=== PATIENT | female | born 1975 | race Caucasian/White ===

== ENCOUNTER 2017-08-22 14:23 | Emergency (ER) | payer BC ==
--- NOTE | 2017-08-22 14:39 | EDM.PDOC ---
ED HPI GENERAL MEDICAL PROBLEM - General Chief Complaint: Respiratory Problem Stated Complaint: SICK Time Seen by Provider: 08/22/17 14:39 Source of Information: Reports: Patient - History of Present Illness INITIAL COMMENTS - FREE TEXT/NARRATIVE: HISTORY AND PHYSICAL: History of present illness: [Patient with persistent cough has been treated through the walk-in clinic with 2 rounds of amoxicillin she has been on prednisone tapering dose since Wednesday she complains of ear pain she did have bilateral otitis media however now appears only effusions remain No fever nausea vomiting chills sweats no chest pain shortness breath headache dizziness palpitation about a urine symptoms ] History of tubal ligation Review of systems: As per history of present illness and below otherwise all systems reviewed and negative. Past medical history: As per history of present illness and as reviewed below otherwise noncontributory. Surgical history: As per history of present illness and as reviewed below otherwise noncontributory. Social history: No reported history of drug or alcohol abuse. Family history: As per history of present illness and as reviewed below otherwise noncontributory. Physical exam: HEENT: Atraumatic, normocephalic, pupils reactive, negative for conjunctival pallor or scleral icterus, mucous membranes moist, throat clear, neck supple, nontender, trachea midline. Mild erythema oropharynx moderate effusion bilateral no loss landmarks no mastoid tenderness no meningeal sign Lungs: Clear to auscultation, breath sounds equal bilaterally, chest nontender. Heart: S1S2, regular, negative for clicks, rubs, or JVD. Abdomen: Soft, nondistended, nontender. Negative for masses or hepatosplenomegaly. Negative for costovertebral tenderness. Pelvis: Stable nontender. Genitourinary: Deferred. Rectal: Deferred. Extremities: Atraumatic, negative for cords or calf pain. Neurovascular unremarkable. Neuro: Awake, alert, oriented. Cranial nerves II through XII unremarkable. Cerebellum unremarkable. Motor and sensory unremarkable throughout. Exam nonfocal. Diagnostics: [Chest 2 views Influenza A ] Therapeutics: []Z-Bertin to cover atypicals Likely viral origin Patient has HFA available she is currently on a prednisone taper Phenergan with codeine Recommend rest fluids nutrition Impression: []Persistent cough Bilateral ear effusion Definitive disposition and diagnosis as appropriate pending reevaluation and review of above. - Related Data Allergies Allergy/AdvReac Type Severity Reaction Status Date / Time No Known Allergies Allergy Verified 08/22/17 14:58 Home Meds: Home Meds Albuterol [Ventolin HFA] gm INH Q4H 08/22/17 [History] Amoxicillin 875 mg PO BID 08/22/17 [History] Prednisone [IJD: Prednisone] mg PO 08/22/17 [History] ED ROS GENERAL - Review of Systems Review Of Systems: ROS reveals no pertinent complaints other than HPI. ED EXAM, GENERAL - Physical Exam Exam: See Below Course - Vital Signs Last Recorded V/S: Last Vital Signs Temp 99.0 F 08/22/17 14:45 Pulse 78 08/22/17 14:45 Resp 24 H 08/22/17 14:45 BP 123/73 08/22/17 14:45 Pulse Ox 97 08/22/17 14:45 - Orders/Labs/Meds Orders: Active Orders 24 hr Category Date Time Status RT Aerosol Therapy [RC] ASDIRECTED Care 08/22/17 14:59 Active Chest 2V [CR] Stat Exams 08/22/17 14:55 Taken Meds: Medications Discontinued Medications Generic Name Dose Route Start Last Admin Trade Name Freq PRN Reason Stop Dose Admin Albuterol/Ipratropium 3 ml 08/22/17 14:59 08/22/17 15:27 Duoneb 3.0-0.5 Mg/3 Ml NEB 08/22/17 15:00 3 ml ONETIME ONE Administration Departure - Departure Time of Disposition: 15:56 Disposition: Home, Self-Care 01 Condition: Good Clinical Impression: Bronchitis, Acute effusion of both middle ears - Discharge Information Referrals: PCP,None [Primary Care Provider] - Forms: ED Department Discharge Additional Instructions: Medication as prescribed Return if symptoms persist or worsen Follow-up with primary care as needed The following information is given to patients seen in the emergency department who are being discharged to home. This information is to outline your options for follow-up care. We provide all patients seen in our emergency department with a follow-up referral. The need for follow-up, as well as the timing and circumstances, are variable depending upon the specifics of your emergency department visit. If you don't have a primary care physician on staff, we will provide you with a referral. We always advise you to contact your personal physician following an emergency department visit to inform them of the circumstance of the visit and for follow-up with them and/or the need for any referrals to a consulting specialist. The emergency department will also refer you to a specialist when appropriate. This referral assures that you have the opportunity for follow-up care with a specialist. All of these measure are taken in an effort to provide you with optimal care, which includes your follow-up. Under all circumstances we always encourage you to contact your private physician who remains a resource for coordinating your care. When calling for follow-up care, please make the office aware that this follow-up is from your recent emergency room visit. If for any reason you are refused follow-up, please contact the [facility] emergency department at and asked to speak to the emergency department charge nurse. - My Orders Last 24 Hours: My Active Orders 08/22/17 14:55 Chest 2V [CR] Stat 08/22/17 14:59 RT Aerosol Therapy [RC] ASDIRECTED - Assessment/Plan Last 24 Hours: My Active Orders 08/22/17 14:55 Chest 2V [CR] Stat 08/22/17 14:59 RT Aerosol Therapy [RC] ASDIRECTED
[2017-08-22] MEDS ORDERED: Albuterol/Ipratropium 3.0-0.5 MG/3 ML Neb Soln NEB ONE (14:59)
--- NOTE | 2017-08-23 16:08 | CR ---
EXAM DATE: 08/22/17 PATIENT'S AGE: 42 Patient: PRIMITIVO ANDRES Facility: [place], [place] Site . Site : 1975 Study: XRay Chest [id number]/19/2017 3:46:54 PM Ordering Physician: Vivek Warren Final Report: INDICATION: Pain shortness of breath TECHNIQUE: Two view chest. FINDINGS: The lungs are clear. The heart, mediastinum and pulmonary vessels are of normal size. There is no evidence of pleural disease. IMPRESSION: Negative chest. Dictated by Deena Ramsay MD @ Aug 22 2017 4:08PM (Electronic Signature) Report Signed by Proxy. DOMENICA
== END 2017-08-22 16:06 | disposition home or self-care (01) ==
LOC: MW.ED 14:23
DX: J40 Bronchitis, not specified as acute or chronic (principal); H65.193 Other acute nonsuppurative otitis media, bilateral
CPT/HCPCS: 71020; 71020-26; 87804; 94640; 99281; 99284-25

== ENCOUNTER 2017-12-03 08:19 | Emergency (ER) | payer OTHER, BC ==
--- NOTE | 2017-12-03 08:53 | EDM.PDOC ---
ED HPI GENERAL MEDICAL PROBLEM - General Chief Complaint: Back Pain or Injury Stated Complaint: BACK AND HIP PAIN Time Seen by Provider: 12/03/17 08:35 - History of Present Illness INITIAL COMMENTS - FREE TEXT/NARRATIVE: HISTORY AND PHYSICAL: History of present illness: The patient is a 42-year-old female who presents the two-week history of lower back pain bilaterally that started after an event at work. The patient slept off of a tire she was standing on and reaching over a bed of the truck and she did not fall to the ground or hit her back but was lifting heavy objects and had abnormal twisting and motion on the way down to her feet. Since that time she has had this discomfort which is better when she stretches and worse with different movements. The pain does not radiate to her legs and she has no bowel or bladder disturbances. She has been using [id number] Aleve and has talked her employer about getting in with occupational health but because they could not get her an appointment she is here for care. She has no systemic complaints no abdominal complaints no flank pain. The patient states she has been to the chiropractor several times and has had x-rays performed and was told that her disc space at L5 was somewhat narrowed but the chiropractor has been working more with stretching and adjusting and did not prescribe any medications. Review of systems: As per history of present illness and below otherwise all systems reviewed and negative. Past medical history: As per history of present illness and as reviewed below otherwise noncontributory. Surgical history: As per history of present illness and as reviewed below otherwise noncontributory. Social history: No reported history of drug or alcohol abuse. Family history: As per history of present illness and as reviewed below otherwise noncontributory. Physical exam: Gen.: Well-developed well-nourished female who is nontoxic and moves in the ED without assistance does not look like she is in no overt distress. HEENT: Atraumatic, normocephalic, negative for conjunctival pallor or scleral icterus, mucous membranes moist, throat clear, neck supple, nontender, trachea midline. Lungs: Clear to auscultation, breath sounds equal bilaterally, chest nontender. Heart: S1S2, regular rate and rhythm no overt murmurs Abdomen: Soft, nondistended, nontender. NABS Negative for costovertebral tenderness. Pelvis: Stable nontender. Genitourinary: Deferred. Rectal: Deferred. Extremities: Atraumatic, negative for cords or calf pain. Neurovascular unremarkable. Neuro: Awake, alert, oriented. Cranial nerves II through XII unremarkable. Cerebellum unremarkable. Motor and sensory unremarkable throughout. Exam nonfocal. Patellar reflexes are +2 bilaterally dorsi and plantar flexion is intact 5/5 inclusive of the great toe and inversion and eat version of the feet is intact. Gait is normal. Back: There are no midline step-offs tenderness defects of the thoracic or lumbar spine there is some discrete SI joint tenderness bilaterally but no soft tissue injury swelling seen. There is diffuse paraspinal lumbar muscular pain on palpation Diagnostics: [] Therapeutics: She was offered Toradol and refuses that shot I discussed with the patient at length that she would need to follow-up in our clinic or with her occupational health person and potentially get involved with physical therapy. At this point I do not think this is a disc injury nor does it require an emergent MRI but she was advised that if the pain persists that that might need to be investigated. Impression: Lumbar back pain strain subacute Definitive disposition and diagnosis as appropriate pending reevaluation and review of above. Back and Hips Pain Score (Numeric/FACES): 4 - Related Data Allergies Allergy/AdvReac Type Severity Reaction Status Date / Time No Known Allergies Allergy Verified 12/03/17 08:29 Home Meds: Home Meds Multivitamin [One Daily] 1 each PO DAILY 12/03/17 [History] Past Medical History - Past Health History Medical/Surgical History: Denies Medical/Surgical History HEENT History: Reports: None Cardiovascular History: Reports: None Respiratory History: Reports: None Gastrointestinal History: Reports: None Genitourinary History: Reports: None Musculoskeletal History: Reports: None Neurological History: Reports: None Endocrine/Metabolic History: Reports: None Hematologic History: Reports: None - Infectious Disease History Infectious Disease History: Reports: Chicken Pox - Past Surgical History Head Surgeries/Procedures: Reports: None HEENT Surgical History: Reports: None Cardiovascular Surgical History: Reports: None Respiratory Surgical History: Reports: None Female Surgical History: Reports: Tubal Ligation Other Female Surgeries/Procedures: reports tubal ligation Social & Family History - Family History Family Medical History: Noncontributory - Tobacco Use Smoking Status *Q: Never Smoker Second Hand Smoke Exposure: No - Caffeine Use Caffeine Use: Reports: Coffee - Alcohol Use Days Per Week of Alcohol Use: 7 Number of Drinks Per Day: 2 Total Drinks Per Week: 14 - Recreational Drug Use Recreational Drug Use: No ED ROS GENERAL - Review of Systems Review Of Systems: ROS reveals no pertinent complaints other than HPI. ED EXAM, GENERAL - Physical Exam Exam: See Below (See dictation) Course - Vital Signs Last Recorded V/S: Last Vital Signs Temp 37.0 C 12/03/17 08:30 Pulse 76 12/03/17 08:30 Resp 16 12/03/17 08:30 BP 109/76 12/03/17 08:30 Pulse Ox 99 12/03/17 08:30 Departure - Departure Time of Disposition: 08:52 Disposition: Home, Self-Care 01 Condition: Good Clinical Impression: Lumbar back sprain Qualifiers: Encounter type: initial encounter Qualified Code(s): S33.5XXA - Sprain of ligaments of lumbar spine, initial encounter - Discharge Information Referrals: PCP,None [Primary Care Provider] - Additional Instructions: The following information is given to patients seen in the emergency department who are being discharged to home. This information is to outline your options for follow-up care. We provide all patients seen in our emergency department with a follow-up referral. The need for follow-up, as well as the timing and circumstances, are variable depending upon the specifics of your emergency department visit. If you don't have a primary care physician on staff, we will provide you with a referral. We always advise you to contact your personal physician following an emergency department visit to inform them of the circumstance of the visit and for follow-up with them and/or the need for any referrals to a consulting specialist. The emergency department will also refer you to a specialist when appropriate. This referral assures that you have the opportunity for followup care with a specialist. All of these measure are taken in an effort to provide you with optimal care, which includes your followup. Under all circumstances we always encourage you to contact your private physician who remains a resource for coordinating your care. When calling for followup care, please make the office aware that this follow-up is from your recent emergency room visit. If for any reason you are refused follow-up, please contact the [facility] emergency department at and ask to speak to the emergency department charge nurse. [facility] Primary care- [place] [address] Please use medications as needed and prescribed and only take the muscle relaxer when you're at home. Please do stretching as we discussed and use ice after any activities and work for 1 hour and then switch to heat and do your stretching. Please call and follow-up with one of our clinic providers for reevaluation further care and referrals to physical therapy or for MRI as indicated. Return to ER as needed and as discussed
== END 2017-12-03 09:07 | disposition home or self-care (01) ==
LOC: MW.ED 08:19
DX: S33.5XXA Sprain of ligaments of lumbar spine, initial encounter (principal); X50.1XXA Overexertion from prolonged static or awkward postures, initial encounter; Y92.89 Other specified places as the place of occurrence of the external cause; Y99.0 Civilian activity done for income or pay
CPT/HCPCS: 99282

== ENCOUNTER 2018-02-07 06:45 | Emergency (ER) | payer BC, OTHER ==
[2018-02-07] MEDS ORDERED: Sodium Chloride 0.9% 1,000 ML IV ONE (06:51)
--- NOTE | 2018-02-07 06:56 | EDM.PDOC ---
ED HPI GENERAL MEDICAL PROBLEM - General Chief Complaint: Abdominal Pain Stated Complaint: STOMACH PAINS Time Seen by Provider: 02/07/18 06:55 Source of Information: Reports: Patient - History of Present Illness INITIAL COMMENTS - FREE TEXT/NARRATIVE: HISTORY AND PHYSICAL: History of present illness: [Patient presents with right upper quadrant pain and bloating with food association no nausea vomiting chills sweats pain is been present since no current fever No chest pain shortness breath headache dizziness or palpitation some loose stools today no urine symptoms ] Review of systems: As per history of present illness and below otherwise all systems reviewed and negative. Past medical history: As per history of present illness and as reviewed below otherwise noncontributory. Surgical history: As per history of present illness and as reviewed below otherwise noncontributory. Social history: No reported history of drug or alcohol abuse. Family history: As per history of present illness and as reviewed below otherwise noncontributory. Physical exam: HEENT: Atraumatic, normocephalic, pupils reactive, negative for conjunctival pallor or scleral icterus, mucous membranes moist, throat clear, neck supple, nontender, trachea midline. Lungs: Clear to auscultation, breath sounds equal bilaterally, chest nontender. Heart: S1S2, regular, negative for clicks, rubs, or JVD. Abdomen: Soft, nondistendedmild tenderness on deep palpation right upper quadrant . Negative for masses or hepatosplenomegaly. Negative for costovertebral tenderness. Pelvis: Stable nontender. Genitourinary: Deferred. Rectal: Deferred. Extremities: Atraumatic, negative for cords or calf pain. Neurovascular unremarkable. Neuro: Awake, alert, oriented. Cranial nerves II through XII unremarkable. Cerebellum unremarkable. Motor and sensory unremarkable throughout. Exam nonfocal. Diagnostics: [CBC CMP UA hCG lipase ]CT abdomen Limited Therapeutics: [Am liter saline bolus ] Toradol 30 mg IV Zofran 8 mg IV ER referral to general surgery for consideration of HIDA scan [place] diet [place] Zofran Impression: [Abdominal pain] Definitive disposition and diagnosis as appropriate pending reevaluation and review of above. Epigastric Pain Score (Numeric/FACES): 3 - Related Data Allergies Allergy/AdvReac Type Severity Reaction Status Date / Time No Known Allergies Allergy Verified 02/07/18 06:55 Home Meds: Home Meds Multivitamin [One Daily] 1 each PO DAILY 12/03/17 [History] Past Medical History - Past Health History Medical/Surgical History: Denies Medical/Surgical History HEENT History: Reports: None Cardiovascular History: Reports: None Respiratory History: Reports: None Gastrointestinal History: Reports: None Genitourinary History: Reports: None Musculoskeletal History: Reports: None Neurological History: Reports: None Endocrine/Metabolic History: Reports: None Hematologic History: Reports: None - Infectious Disease History Infectious Disease History: Reports: Chicken Pox - Past Surgical History Head Surgeries/Procedures: Reports: None HEENT Surgical History: Reports: None Cardiovascular Surgical History: Reports: None Respiratory Surgical History: Reports: None Female Surgical History: Reports: Tubal Ligation Other Female Surgeries/Procedures: reports tubal ligation Social & Family History - Family History Family Medical History: Noncontributory - Tobacco Use Smoking Status *Q: Never Smoker Second Hand Smoke Exposure: No - Caffeine Use Caffeine Use: Reports: Coffee - Alcohol Use Days Per Week of Alcohol Use: 7 Number of Drinks Per Day: 2 Total Drinks Per Week: 14 - Recreational Drug Use Recreational Drug Use: No ED ROS GENERAL - Review of Systems Review Of Systems: ROS reveals no pertinent complaints other than HPI. ED EXAM, GENERAL - Physical Exam Exam: See Below Course - Vital Signs Last Recorded V/S: Last Vital Signs Temp 97.4 F 02/07/18 08:38 Pulse 76 02/07/18 08:38 Resp 16 02/07/18 08:38 BP 110/72 02/07/18 08:38 Pulse Ox 98 02/07/18 08:38 - Orders/Labs/Meds Orders: Active Orders 24 hr Category Date Time Status HCG QUALITATIVE,URINE [URCHEM] Stat Lab 02/07/18 07:54 Ordered UA W/MICROSCOPIC [URIN] Stat Lab 02/07/18 07:54 Ordered Labs: Laboratory Tests 02/07/18 02/07/18 02/07/18 Range/Units 06:55 06:55 07:54 WBC 8.60 (4.0-11.0) K/uL RBC 4.25 L (4.30-5.90) M/uL Hgb 14.0 (12.0-16.0) g/dL Hct 40.6 (36.0-46.0) % MCV 95.5 (80.0-98.0) fL MCH 32.9 H (27.0-32.0) pg MCHC 34.5 (31.0-37.0) g/dL RDW Std Deviation 43.9 (28.0-62.0) fl RDW Coeff of [place] 13 (11.0-15.0) % Plt Count 312 (150-400) K/uL MPV 10.70 (7.40-12.00) fL Neut % (Auto) 69.7 (48.0-80.0) % Lymph % (Auto) 16.3 (16.0-40.0) % [place] % (Auto) 11.6 (0.0-15.0) % Eos % (Auto) 1.9 (0.0-7.0) % Baso % (Auto) 0.5 (0.0-1.5) % Neut # (Auto) 6.0 H (1.4-5.7) K/uL Lymph # (Auto) 1.4 (0.6-2.4) K/uL [place] # (Auto) 1.0 H (0.0-0.8) K/uL Eos # (Auto) 0.2 (0.0-0.7) K/uL Baso # (Auto) 0.0 (0.0-0.1) K/uL Nucleated RBC % 0.0 /100WBC Nucleated RBCs # 0 K/uL Sodium 139 (136-145) mmol/L Potassium 4.1 (3.5-5.1) mmol/L Chloride 107 (98-107) mmol/L Carbon Dioxide 27.0 (21.0-32.0) mmol/L BUN 15 (7.0-18.0) mg/dL Creatinine 0.9 (0.6-1.0) mg/dL Est Cr Clr Drug Dosing 71.78 mL/min Estimated GFR (MDRD) > 60.0 ml/min Glucose 113 H (74-106) mg/dL Calcium 8.4 L (8.5-10.1) mg/dL Total Bilirubin 0.2 (0.2-1.0) mg/dL AST 16 (15-37) IU/L ALT 18 (14-63) IU/L Alkaline Phosphatase 67 (46-116) U/L Total Protein 6.4 (6.4-8.2) g/dL Albumin 3.4 (3.4-5.0) g/dL Globulin 3.0 (2.0-3.5) g/dL Albumin/Globulin Ratio 1.1 L (1.3-2.8) Lipase 106 (73-393) U/L Urine Color YELLOW Urine Appearance SLT CLOUDY Urine pH 5.5 (5.0-8.0) Ur Specific [place] 1.015 (1.001-1.035) Urine Protein NEGATIVE (NEGATIVE) mg/dL Urine Glucose (UA) NEGATIVE (NEGATIVE) mg/dL Urine Ketones NEGATIVE (NEGATIVE) mg/dL Urine Occult Blood TRACE-INTACT (NEGATIVE) Urine Nitrite NEGATIVE (NEGATIVE) Urine Bilirubin NEGATIVE (NEGATIVE) Urine Urobilinogen 0.2 (<2.0) EU/dL Ur Leukocyte Esterase NEGATIVE (NEGATIVE) Urine RBC 0-1 (0-2/HPF) Urine WBC 0-1 (0-5/HPF) Ur Epithelial Cells MANY (NONE-FEW) Urine Bacteria RARE (NEGATIVE) Urine HCG, Qual (NEGATIVE) 02/07/18 Range/Units 07:54 WBC (4.0-11.0) K/uL RBC (4.30-5.90) M/uL Hgb (12.0-16.0) g/dL Hct (36.0-46.0) % MCV (80.0-98.0) fL MCH (27.0-32.0) pg MCHC (31.0-37.0) g/dL RDW Std Deviation (28.0-62.0) fl RDW Coeff of [place] (11.0-15.0) % Plt Count (150-400) K/uL MPV (7.40-12.00) fL Neut % (Auto) (48.0-80.0) % Lymph % (Auto) (16.0-40.0) % [place] % (Auto) (0.0-15.0) % Eos % (Auto) (0.0-7.0) % Baso % (Auto) (0.0-1.5) % Neut # (Auto) (1.4-5.7) K/uL Lymph # (Auto) (0.6-2.4) K/uL [place] # (Auto) (0.0-0.8) K/uL Eos # (Auto) (0.0-0.7) K/uL Baso # (Auto) (0.0-0.1) K/uL Nucleated RBC % /100WBC Nucleated RBCs # K/uL Sodium (136-145) mmol/L Potassium (3.5-5.1) mmol/L Chloride (98-107) mmol/L Carbon Dioxide (21.0-32.0) mmol/L BUN (7.0-18.0) mg/dL Creatinine (0.6-1.0) mg/dL Est Cr Clr Drug Dosing mL/min Estimated GFR (MDRD) ml/min Glucose (74-106) mg/dL Calcium (8.5-10.1) mg/dL Total Bilirubin (0.2-1.0) mg/dL AST (15-37) IU/L ALT (14-63) IU/L Alkaline Phosphatase (46-116) U/L Total Protein (6.4-8.2) g/dL Albumin (3.4-5.0) g/dL Globulin (2.0-3.5) g/dL Albumin/Globulin Ratio (1.3-2.8) Lipase (73-393) U/L Urine Color Urine Appearance Urine pH (5.0-8.0) Ur Specific [place] (1.001-1.035) Urine Protein (NEGATIVE) mg/dL Urine Glucose (UA) (NEGATIVE) mg/dL Urine Ketones (NEGATIVE) mg/dL Urine Occult Blood (NEGATIVE) Urine Nitrite (NEGATIVE) Urine Bilirubin (NEGATIVE) Urine Urobilinogen (<2.0) EU/dL Ur Leukocyte Esterase (NEGATIVE) Urine RBC (0-2/HPF) Urine WBC (0-5/HPF) Ur Epithelial Cells (NONE-FEW) Urine Bacteria (NEGATIVE) Urine HCG, Qual NEGATIVE (NEGATIVE) Meds: Medications Discontinued Medications Generic Name Dose Route Start Last Admin Trade Name Freq PRN Reason Stop Dose Admin Sodium Chloride 1,000 mls @ 999 mls/hr 02/07/18 06:51 02/07/18 07:03 Normal Saline IV 02/07/18 07:51 999 mls/hr STAT ONE Administration Ketorolac Tromethamine 30 mg 02/07/18 07:04 02/07/18 07:21 Toradol IVPUSH 02/07/18 07:05 30 mg ONETIME ONE Administration Ondansetron HCl 8 mg 02/07/18 07:10 02/07/18 07:17 Zofran IVPUSH 02/07/18 07:11 8 mg ONETIME ONE Administration Pantoprazole Sodium 80 mg 02/07/18 07:10 02/07/18 07:38 Protonix Iv IVPUSH 02/07/18 07:11 80 mg .BOLUS ONE Administration Departure - Departure Time of Disposition: 08:56 Disposition: Home, Self-Care 01 Condition: Good Clinical Impression: Abdominal pain - Discharge Information Referrals: PCP,None [Primary Care Provider] - Forms: ED Department Discharge Additional Instructions: [place] diet as discussed-avoid fatty/greasy foods Medication as prescribed. Used as needed ER referral to general surgery for consideration of HIDA scan [facility] - General Surgery [address], [address] [place] [address] The following information is given to patients seen in the emergency department who are being discharged to home. This information is to outline your options for follow-up care. We provide all patients seen in our emergency department with a follow-up referral. The need for follow-up, as well as the timing and circumstances, are variable depending upon the specifics of your emergency department visit. If you don't have a primary care physician on staff, we will provide you with a referral. We always advise you to contact your personal physician following an emergency department visit to inform them of the circumstance of the visit and for follow-up with them and/or the need for any referrals to a consulting specialist. The emergency department will also refer you to a specialist when appropriate. This referral assures that you have the opportunity for follow-up care with a specialist. All of these measure are taken in an effort to provide you with optimal care, which includes your follow-up. Under all circumstances we always encourage you to contact your private physician who remains a resource for coordinating your care. When calling for follow-up care, please make the office aware that this follow-up is from your recent emergency room visit. If for any reason you are refused follow-up, please contact the [facility] emergency department at and asked to speak to the emergency department charge nurse. - My Orders Last 24 Hours: My Active Orders 02/07/18 07:54 HCG QUALITATIVE,URINE [URCHEM] Stat UA W/MICROSCOPIC [URIN] Stat - Assessment/Plan Last 24 Hours: My Active Orders 02/07/18 07:54 HCG QUALITATIVE,URINE [URCHEM] Stat UA W/MICROSCOPIC [URIN] Stat
[2018-02-07] MEDS ORDERED: Ketorolac 30 MG/ML SDV IVPUSH ONE (07:04)
[2018-02-07] MEDS ORDERED: Ondansetron 4 MG/2 ML SDV IVPUSH ONE (07:10)
[2018-02-07] MEDS ORDERED: Pantoprazole 40 MG Vial IVPUSH ONE (07:10)
[2018-02-07 07:39] LABS: CHLORIDE,CL 107 mmol/L (98-107); SODIUM,NA 139 mmol/L (136-145)
--- NOTE | 2018-02-07 08:38 | US ---
EXAMINATION: Right upper quadrant ultrasound HISTORY: Pain COMPARISON: None TECHNIQUE: Grayscale and color Doppler imaging obtained of the right upper quadrant. FINDINGS: The visualized pancreas is normal. Liver normal in contour and echotexture without a focal hepatic mass. The gallbladder wall thickness is normal. No pericholecystic fluid or shadowing gallsto nikole. Common bile duct measures 6 mm. Sonographic Cortez sign is negative. IMPRESSION: 1. Grossly unremarkable right upper quadrant ultrasound.
== END 2018-02-07 09:30 | disposition home or self-care (01) ==
LOC: MW.ED 06:45
DX: R10.11 Right upper quadrant pain (principal); R10.13 Epigastric pain
CPT/HCPCS: 76705; 80053; 81001; 81025; 83690; 85025; 96361; 96374; 96375; 99284; C9113; J1885; J2405; J7040

== ENCOUNTER 2018-04-13 08:42 | Emergency (ER) | payer BC ==
[2018-04-13] MEDS ORDERED: Acetaminophen/HYDROcodone 325-5 MG Tab PO ONE (09:39)
[2018-04-13] MEDS ORDERED: Ketorolac 10 MG Tab PO ONE (09:39)
[2018-04-13] MEDS ORDERED: Diazepam 2 MG Tab PO ONE (09:40)
--- NOTE | 2018-04-13 09:46 | EDM.PDOC ---
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 This patient was seen in the emergency department by me on December 03 for a similar work related injury where she was bending over and had back pain at that time she was treated conservatively and she did follow-up with her provider at [facility],Jaylin Michel, and she said the pain slowly improved. She did not have any further imaging at that time. She said she was in her usual state of good health when she was at work and suddenly felt this pop in her back and pain in her back which has been constant all night. It is worse with position changing. She has not taken much for the pain other than a dose of Tylenol and place ice on it. She has no bowel or bladder disturbances and she has a history of bilateral tubal ligation. She has no flank pain or urinary complaints and no neurosensory changes in her legs. Pain does not radiate to her butt or legs. Review of systems: As per history of present illness and below otherwise all systems reviewed and negative. Past medical history: As per history of present illness and as reviewed below otherwise noncontributory. Surgical history: As per history of present illness and as reviewed below otherwise noncontributory. Social history: No reported history of drug or alcohol abuse. Family history: As per history of present illness and as reviewed below otherwise noncontributory. Physical exam: General: Well-developed well-nourished female who is nontoxic and intubated into the ED although very slowly. She resists much position changing on exam because she says it makes her feel uncomfortable but she can do this. She is nontoxic and her vital signs have been reviewed by me HEENT: Atraumatic, normocephalic, negative for conjunctival pallor or scleral icterus, mucous membranes moist, throat clear, neck supple, nontender, trachea midline. Lungs: Clear to auscultation, breath sounds equal bilaterally, chest nontender. Heart: S1S2, regular rate and rhythm no overt murmurs Abdomen: Soft, nondistended, nontender. Negative for costovertebral tenderness. Pelvis: Stable nontender. Genitourinary: Deferred. Rectal: Deferred. Extremities: Atraumatic, negative for cords or calf pain. Neurovascular unremarkable. Full range of motion no palpable deformities are appreciated and no pedal edema Neuro: Awake, alert, oriented. Cranial nerves II through XII unremarkable. Cerebellum unremarkable. Motor and sensory unremarkable throughout. Exam nonfocal. Patellar reflexes are +2 bilaterally and brisk, dorsi and plantar flexion is intact 5/5 inclusive of the great toe and inversion and eversion of her feet are intact. Back: There are no midline step-offs tenderness or defects of the thoracic or lumbar spine but there is diffuse thoracic paraspinal tenderness bilaterally without localization right or left there is no discrete pain with palpation of the buttocks. Diagnostics: [] Therapeutics: The patient refused any IM or IV medications due to fear of needles We have given oral Toradol [place] 5/325 and Valium 2 mg Advised the patient that this is likely musculoskeletal as it was in the past and at this point no imaging is indicated but may she may need imaging going forward and she needs to follow-up with a provider at [facility]. Impression: Lumbar back pain strain Definitive disposition and diagnosis as appropriate pending reevaluation and review of above. mid lower back Pain Score (Numeric/FACES): 8 - Related Data Allergies Allergy/AdvReac Type Severity Reaction Status Date / Time bee stings Allergy Anaphylactic Uncoded 04/13/18 08:58 Shock Home Meds: Home Meds Venlafaxine [Effexor XR 24 Hr] 37.5 mg PO DAILY 04/13/18 [History] Past Medical History - Past Health History Medical/Surgical History: Denies Medical/Surgical History HEENT History: Reports: None Cardiovascular History: Reports: None Respiratory History: Reports: None Gastrointestinal History: Reports: None Genitourinary History: Reports: None Musculoskeletal History: Reports: None Neurological History: Reports: None Endocrine/Metabolic History: Reports: None Hematologic History: Reports: None - Infectious Disease History Infectious Disease History: Reports: Chicken Pox - Past Surgical History Head Surgeries/Procedures: Reports: None HEENT Surgical History: Reports: None Cardiovascular Surgical History: Reports: None Respiratory Surgical History: Reports: None Female Surgical History: Reports: Tubal Ligation Other Female Surgeries/Procedures: reports tubal ligation Social & Family History - Family History Family Medical History: Noncontributory - Tobacco Use Smoking Status *Q: Never Smoker - Caffeine Use Caffeine Use: Reports: Coffee - Alcohol Use Days Per Week of Alcohol Use: 5 Number of Drinks Per Day: 3 Total Drinks Per Week: 15 - Recreational Drug Use Recreational Drug Use: No ED ROS GENERAL - Review of Systems Review Of Systems: ROS reveals no pertinent complaints other than HPI. ED EXAM, GENERAL - Physical Exam Exam: See Below (See dictation) Course - Vital Signs Last Recorded V/S: Last Vital Signs Temp 36.7 C 04/13/18 09:00 Pulse 75 04/13/18 09:00 Resp 20 04/13/18 09:00 BP 112/74 04/13/18 09:00 Pulse Ox 97 04/13/18 09:00 - Orders/Labs/Meds Meds: Medications Discontinued Medications Generic Name Dose Route Start Last Admin Trade Name Freq PRN Reason Stop Dose Admin Hydrocodone Bitart/Acetaminophen 1 tab 04/13/18 09:39 [place] 325-5 Mg PO 04/13/18 09:40 ONETIME ONE Diazepam 2 mg 04/13/18 09:40 Valium PO 04/13/18 09:41 ONETIME ONE Ketorolac Tromethamine 10 mg 04/13/18 09:39 Toradol PO 04/13/18 09:40 ONETIME ONE Departure - Departure Time of Disposition: 09:46 Disposition: Home, Self-Care 01 Condition: Good Clinical Impression: Lumbar back pain Lumbar back sprain Qualifiers: Encounter type: subsequent encounter Qualified Code(s): S33.5XXD - Sprain of ligaments of lumbar spine, subsequent encounter - Discharge Information Referrals: Jaylin Michel NP [Primary Care Provider] - Additional Instructions: The following information is given to patients seen in the emergency department who are being discharged to home. This information is to outline your options for follow-up care. We provide all patients seen in our emergency department with a follow-up referral. The need for follow-up, as well as the timing and circumstances, are variable depending upon the specifics of your emergency department visit. If you don't have a primary care physician on staff, we will provide you with a referral. We always advise you to contact your personal physician following an emergency department visit to inform them of the circumstance of the visit and for follow-up with them and/or the need for any referrals to a consulting specialist. The emergency department will also refer you to a specialist when appropriate. This referral assures that you have the opportunity for followup care with a specialist. All of these measure are taken in an effort to provide you with optimal care, which includes your followup. Under all circumstances we always encourage you to contact your private physician who remains a resource for coordinating your care. When calling for followup care, please make the office aware that this follow-up is from your recent emergency room visit. If for any reason you are refused follow-up, please contact the [facility] emergency department at and ask to speak to the emergency department charge nurse. [address] [place] [address] Please contact your provider at [facility] for follow-up of this care plan and further evaluation and care as needed. Return to ER as needed and as discussed. Take all medications as prescribed and directed and only take the muscle relaxer and the stronger pain pill while you're at home as they may make you sleepy or drowsy. Use heat or ice as you choose to the back and try to stretch and open up the areas and do slow movements and position changes
== END 2018-04-13 10:15 | disposition home or self-care (01) ==
LOC: MW.ED 08:42
DX: S39.012D Strain of muscle, fascia and tendon of lower back, subsequent encounter (principal); X50.0XXD Overexertion from strenuous movement or load, subsequent encounter; Y99.0 Civilian activity done for income or pay; Z91.030 Bee allergy status; Z79.899 Other long term (current) drug therapy
CPT/HCPCS: 99283; A9270

== ENCOUNTER 2018-10-26 09:36 | Day surgery (SDC) | payer BC ==
[~2018-10-26 09:36] MED LIST: Acetaminophen/HYDROcodone 325-5 MG Tab PO PRN; Bupivacaine 0.25%/EPINEPHrine 1:200,000 10 ML SDV INJECT ONE; Bupivacaine 25%/EPINEPHrine/PF 30 ML ONE; Lactated Ringers 1,000 ML IV SCH; Midazolam 1 MG/ML 2 ML SDV ONE; Propofol 200 MG/20 ML SDV ONE; ceFAZolin 2 GM in Premix Bag 1 BAG IV ONE; fentaNYL 100 MCG/2 ML SDV ONE
--- NOTE | 2018-10-26 10:17 | PCM.PREANE ---
Preanesthetic Assessment - Anesthesia/Transfusion/Family Hx Anesthesia History: Prior Anesthesia Without Reaction Family History of Anesthesia Reaction: No Transfusion History: No Prior Transfusion(s) Intubation History: Unknown - Review of Systems General: No Symptoms Pulmonary: No Symptoms Cardiovascular: No Symptoms Gastrointestinal: No Symptoms Neurological: No Symptoms Other: Reports: None - Physical Assessment NPO Status Date: 10/25/18 NPO Status Time: 21:00 O2 Sat by Pulse Oximetry: 95 Respiratory Rate: 15 Vital Signs: Last Vital Signs Temp 37.0 C 10/26/18 10:00 Pulse 82 10/26/18 10:00 Resp 15 10/26/18 10:00 BP 115/71 10/26/18 10:00 Pulse Ox 95 10/26/18 10:00 Height: 1.65 m Weight: 79.832 kg ASA Class: 2 Mental Status: Alert & Oriented x3 Airway Class: Mallampati = 2 Dentition: Reports: Normal Dentition Thyro-Mental Finger Breadths: 3 Mouth Opening Finger Breadths: 2 ROM/Head Extension: Full Lungs: Clear to Auscultation, Normal Respiratory Effort Cardiovascular: Regular Rate, Regular Rhythm - Lab Values: Laboratory Last Values Urine HCG, Qual NEGATIVE (NEGATIVE) 10/26/18 09:50 - Allergies Allergies/Adverse Reactions: Allergies Allergy/AdvReac Type Severity Reaction Status Date / Time bee stings Allergy Anaphylactic Uncoded 04/13/18 08:58 Shock - Blood Blood Available: No - Anesthesia Plan Pre-Op Medication Ordered: None - Acknowledgements Anesthesia Type Planned: MAC Pt an Appropriate Candidate for the Planned Anesthesia: Yes Alternatives and Risks of Anesthesia Discussed w Pt/Guardian: Yes Pt/Guardian Understands and Agrees with Anesthesia Plan: Yes PreAnesthesia Questionnaire - Past Health History Medical/Surgical History: Denies Medical/Surgical History HEENT History: Reports: None Cardiovascular History: Reports: None Respiratory History: Reports: None Gastrointestinal History: Reports: None Genitourinary History: Reports: None [employer] History: Reports: Endometriosis, Musculoskeletal History: Reports: None Neurological History: Reports: Migraines Psychiatric History: Reports: Anxiety, Depression Endocrine/Metabolic History: Reports: None Hematologic History: Reports: None - Infectious Disease History Infectious Disease History: Reports: Chicken Pox - Past Surgical History Head Surgeries/Procedures: Reports: None HEENT Surgical History: Reports: None Cardiovascular Surgical History: Reports: None Respiratory Surgical History: Reports: None Female Surgical History: Reports: Tubal Ligation Other Female Surgeries/Procedures: laparoscopy for endometriosis - SUBSTANCE USE Smoking Status *Q: Former Smoker Recreational Drug Use History: No - HOME MEDS Home Medications: Home Meds Venlafaxine [Effexor XR 24 Hr] 37.5 mg PO DAILY 04/13/18 [History] - CURRENT (IN HOUSE) MEDS Current Meds: Current Medications Hydrocodone Bitart/Acetaminophen ([place] 325-5 Mg) 1 tab PO Q4H PRN PRN Reason: Pain Lactated Ringer's (Ringers, Lactated) 1,000 mls @ 125 mls/hr IV ASDIRECTED AMISHA Discontinued Medications Bupivacaine HCl/Epinephrine Bitart ([place] 0.25%/Epinephrine 1:200,000) 10 ml INJECT ONETIME ONE Stop: 10/26/18 08:01 Fentanyl (Sublimaze) Confirm Administered Dose 100 mcg .ROUTE .STK-MED ONE Stop: 10/26/18 08:22 Bupivacaine HCl/Epinephrine Bitart (Sensorc Mpf 0.25%-Epi [id number]) Confirm Administered Dose 30 mls @ as directed .ROUTE .STK-MED ONE Stop: 10/26/18 07:40 Cefazolin Sodium/Dextrose 2 gm (/ Premix) 50 mls @ 100 mls/hr IV ONETIME ONE Stop: 10/26/18 08:29 Midazolam HCl (Versed 1 Mg/Ml) Confirm Administered Dose 2 mg .ROUTE .STK-MED ONE Stop: 10/26/18 08:22 Propofol (Diprivan 20 Ml) Confirm Administered Dose 200 mg .ROUTE .STK-MED ONE Stop: 10/26/18 08:22
[2018-10-26] MEDS ORDERED: Propofol 200 MG/20 ML SDV ONE (10:50)
--- NOTE | 2018-10-26 11:21 | PCM.POSTAN ---
POST ANESTHESIA ASSESSMENT - MENTAL STATUS Mental Status: Alert - VITAL SIGNS Pulse Rate: 82 SaO2: 97 Resp Rate: 12 Blood Pressure: 115/61 Temperature: 36.6 F - RESPIRATORY Respiratory Status: Respiratory Rate WNL - CARDIOVASCULAR CV Status: Pulse Rate WNL - GASTROINTESTINAL GI Status: No Symptoms - POST OP HYDRATION Hydration Status: Adequate & Stable (no anesthesia problems)
--- NOTE | 2018-10-26 11:21 | PCM48HPAN ---
Post Anesthesia Note - EVALUATION WITHIN 48HRS OF ANESTHETIC Vital Signs in Normal Range: Yes Patient Participated in Evaluation: Yes Respiratory Function Stable: Yes Airway Patent: Yes Cardiovascular Function Stable: Yes Hydration Status Stable: Yes Pain Control Satisfactory: Yes Nausea and Vomiting Control Satisfactory: Yes Mental Status Recovered: Yes Pulse Rate: 82 Resp Rate: 12 Temperature: 36.6 F Blood Pressure: 115/61 - COMMENTS/OBSERVATIONS Free Text/Narrative:: no anesthesia problems
--- NOTE | 2018-10-26 11:39 | PCM.OPNOTE ---
- General Post-Op/Procedure Note Date of Surgery/Procedure: 10/26/18 Operative Procedure(s): excision of left ring finger ganglion cyst Pre Op Diagnosis: left ring finger ganglion Post-Op Diagnosis: Same Anesthesia Technique: Local, MAC Primary Surgeon: Karol Clay Shear Operator Helper: Michell Cowan Complications: None Condition: Good
--- NOTE | 2018-10-31 13:25 | OR ---
SURGEON: JOE KOEHLER MD DATE OF PROCEDURE: 10/26/2018 PREOPERATIVE DIAGNOSIS: Left ring finger ganglion cyst. POSTOPERATIVE DIAGNOSIS: Left ring finger ganglion cyst. PROCEDURE: Excision of left ring finger ganglion cyst. ANESTHESIA: Local MAC. COMPREHENSIVE ADVISOR: TIFFANY Alva REASON FOR AND ROLE OF COMPREHENSIVE ADVISOR: Retraction, prepping, draping, positioning and closure assistance. INDICATIONS: Ms. Maki is a 43-year-old female seen today in evaluation for a left ring finger ganglion cyst. Risks and benefits of excision were discussed with her including, but not limited to, bleeding, infection, damage to underlying or overlying structures, possible need for future interventions, possible scarring. PROCEDURE IN DETAIL: After informed consent was obtained and placed on the chart, the patient was brought to the operating theater and laid in supine position. After adequate local MAC anesthesia was obtained, the area was prepped and draped and a time- out was completed to confirm side and site. A digital block was completed. Once adequately anesthetized, the arm was exsanguinated and tourniquet was insufflated to 200 mmHg. A small Chhaya style incision was made over the ganglion itself. Dissection was carried circumferentially around it and was easily removed en bloc. It was sent for pathology. Once adequately removed, meticulous hemostasis was obtained and the surrounding area was examined. No additional defects were noted. Skin was closed using 5-0 nylon stitch in a horizontal mattress fashion. Once adequately closed, the wound was dressed with Xeroform fluffs and a Kerlix gauze dressing and a 2-inch Kameron wrap. The patient tolerated this well. All counts and needles were correct at the end of the case. FOLLOWUP INSTRUCTIONS: The patient will see us in 10 to 14 days. Sooner if any problems, questions, or concerns. She was given a prescription for pain control if needed. HEGGTHE / MODL /[id number]
== END 2018-10-26 11:45 | disposition home or self-care (01) ==
LOC: MW.SDS 09:36
PROVIDERS: ATTEND Plastic Surgery
DX: M67.442 Ganglion, left hand (principal); F17.210 Nicotine dependence, cigarettes, uncomplicated; F41.9 Anxiety disorder, unspecified; F32.9 Major depressive disorder, single episode, unspecified; Z91.030 Bee allergy status
CPT/HCPCS: 26160; 81025; J2250; J2704; J3010; J7120; 01810; 88304

== ENCOUNTER 2019-11-14 07:40 | Day surgery (SDC) | payer BC ==
[~2019-11-14 07:40] MED LIST changes: -Acetaminophen/HYDROcodone 325-5 MG Tab PO PRN; -Bupivacaine 0.25%/EPINEPHrine 1:200,000 10 ML SDV INJECT ONE; -Bupivacaine 25%/EPINEPHrine/PF 30 ML ONE; -Lactated Ringers 1,000 ML IV SCH; +Sodium Chloride 0.9% 10 ML SDV IV PRN; +Sodium Chloride 0.9% 10 ML Syringe FLUSH PRN; +Sodium Chloride 0.9% 2.5 ML Syringe FLUSH PRN; -fentaNYL 100 MCG/2 ML SDV ONE; +fentaNYL 250 MCG/5 ML SDV ONE
[2019-11-14] MEDS ORDERED: Methylene Blue 50 MG/10 ML Ampule ONE (08:00)
[2019-11-14] MEDS ORDERED: Bupivacaine 0.25% 10 ML SDV ONE (08:08)
[2019-11-14] MEDS: Lactated Ringers 1,000 ML IV SCH ×2 (08:30→22:38)
[2019-11-14] MEDS ORDERED: Scopolamine 1.5 MG Transdermal Patch TRDERM PRN (08:44)
--- NOTE | 2019-11-14 08:47 | PCM.PREANE ---
Preanesthetic Assessment - Anesthesia/Transfusion/Family Hx Anesthesia History: Prior Anesthesia Without Reaction Family History of Anesthesia Reaction: No Transfusion History: No Prior Transfusion(s) Intubation History: Unknown - Review of Systems General: No Symptoms Pulmonary: No Symptoms Cardiovascular: No Symptoms Gastrointestinal: No Symptoms Neurological: No Symptoms Other: Reports: None - Physical Assessment Height: 5 ft 5 in Weight: 76.657 kg ASA Class: 2 Mental Status: Alert & Oriented x3 Airway Class: Mallampati = 2 Dentition: Reports: Normal Dentition Thyro-Mental Finger Breadths: 2 Mouth Opening Finger Breadths: 2 (small mouyg) ROM/Head Extension: Full Lungs: Clear to Auscultation, Normal Respiratory Effort Cardiovascular: Regular Rate, Regular Rhythm - Lab Values: Laboratory Last Values WBC 6.38 K/uL (4.0-11.0) 11/14/19 08:18 RBC 4.40 M/uL (4.30-5.90) 11/14/19 08:18 Hgb 14.5 g/dL (12.0-16.0) 11/14/19 08:18 Hct 42.9 % (36.0-46.0) 11/14/19 08:18 MCV 97.5 fL (80.0-98.0) 11/14/19 08:18 MCH 33.0 pg (27.0-32.0) H 11/14/19 08:18 MCHC 33.8 g/dL (31.0-37.0) 11/14/19 08:18 RDW Std Deviation 45.8 fl (28.0-62.0) 11/14/19 08:18 RDW Coeff of Estrella 13 % (11.0-15.0) 11/14/19 08:18 Plt Count 317 K/uL (150-400) 11/14/19 08:18 MPV 11.20 fL (7.40-12.00) 11/14/19 08:18 Nucleated RBC % 0.0 /100WBC 11/14/19 08:18 Nucleated RBCs # 0 K/uL 11/14/19 08:18 - Allergies Allergies/Adverse Reactions: Allergies Allergy/AdvReac Type Severity Reaction Status Date / Time bee stings Allergy Anaphylactic Uncoded 11/08/19 09:02 Shock - Blood Blood Available: No - Anesthesia Plan Pre-Op Medication Ordered: None - Acknowledgements Anesthesia Type Planned: General Anesthesia Pt an Appropriate Candidate for the Planned Anesthesia: Yes Alternatives and Risks of Anesthesia Discussed w Pt/Guardian: Yes Pt/Guardian Understands and Agrees with Anesthesia Plan: Yes PreAnesthesia Questionnaire - Past Health History Medical/Surgical History: Denies Medical/Surgical History HEENT History: Reports: None Cardiovascular History: Reports: None Respiratory History: Reports: None Gastrointestinal History: Reports: None Genitourinary History: Reports: None 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: Endometriosis, , 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 Other OB/BYN History: ETOP Musculoskeletal History: Reports: Fracture Other Musculoskeletal History: hx fx nose Neurological History: Reports: Migraines Psychiatric History: Reports: Anxiety, Depression Endocrine/Metabolic History: Reports: None Hematologic History: Reports: None Immunologic History: Reports: None Oncologic (Cancer) History: Reports: None Dermatologic History: Reports: None - Infectious Disease History Infectious Disease History: Reports: Chicken Pox - Past Surgical History Head Surgeries/Procedures: Reports: None HEENT Surgical History: Reports: None Cardiovascular Surgical History: Reports: None Respiratory Surgical History: Reports: None GI Surgical History: Reports: None Female Surgical History: Reports: D&C, Tubal Ligation Other Female Surgeries/Procedures: laparoscopy for endometriosis, ETOP Endocrine Surgical History: Reports: None Neurological Surgical History: Reports: None Musculoskeletal Surgical History: Reports: None Oncologic Surgical History: Reports: None Dermatological Surgical History: Reports: None - SUBSTANCE USE Smoking Status *Q: Former Smoker Tobacco Use Within Last Twelve Months: No Days Per Week of Alcohol Use: 7 Number of Drinks Per Day: 2 Total Drinks Per Week: 14 - HOME MEDS Home Medications: Home Meds Biotin 1 tab.chew CHEW DAILY 11/08/19 [History] - CURRENT (IN HOUSE) MEDS Current Meds: Current Medications Lactated Ringer's (Ringers, Lactated) 1,000 mls @ 100 mls/hr IV ASDIRECTED AMISHA Sodium Chloride (Saline Flush) 10 ml FLUSH ASDIRECTED PRN PRN Reason: Keep Vein Open Sodium Chloride (Saline Flush) 2.5 ml FLUSH ASDIRECTED PRN PRN Reason: Keep Vein Open Sodium Chloride (Normal Saline) 10 ml IV ASDIRECTED PRN PRN Reason: IV Use Discontinued Medications Bupivacaine HCl (Sensorcaine-Mpf 0.25%) Confirm Administered Dose 20 ml .ROUTE .STK-MED ONE Stop: 11/14/19 08:09 Fentanyl (Sublimaze) Confirm Administered Dose 250 mcg .ROUTE .STK-MED ONE Stop: 11/14/19 07:40 Cefazolin Sodium/Dextrose 2 gm (/ Premix) 50 mls @ 100 mls/hr IV ONETIME ONE Stop: 11/14/19 03:04 Methylene Blue (Provayblue) Confirm Administered Dose 50 mg .ROUTE .STK-MED ONE Stop: 11/14/19 08:01 Midazolam HCl (Versed 1 Mg/Ml) Confirm Administered Dose 2 mg .ROUTE .STK-MED ONE Stop: 11/14/19 07:40 Propofol (Diprivan 20 Ml) Confirm Administered Dose 200 mg .ROUTE .STK-MED ONE Stop: 11/14/19 07:40
[2019-11-14 09:01] LABS: BLOOD UREA NITROGEN,BUN 16 mg/dL (7.0-18.0); CARBON DIOXIDE,CO2 24.9 mmol/L (21.0-32.0); CHLORIDE,CL 108 mmol/L (98-107); GLUCOSE RANDOM 115 mg/dL (74-106); POTASSIUM,K 4.3 mmol/L (3.5-5.1); SODIUM,NA 142 mmol/L (136-145)
[2019-11-14] MEDS ORDERED: Phenylephrine/Normal Saline 100 MCG/ML 10 ML Syringe ONE (10:05)
[2019-11-14] MEDS ORDERED: Rocuronium 100 MG/10 ML Syringe ONE (10:05)
[2019-11-14] MEDS ORDERED: ePHEDrine 50 MG/ML SDV ONE (10:05)
[2019-11-14] MEDS ORDERED: Ondansetron 4 MG/2 ML SDV ONE (10:52)
[2019-11-14] MEDS ORDERED: Dexamethasone 4 MG/ML 5 ML MDV ONE (10:52)
[2019-11-14] MEDS ORDERED: Sodium Chloride 0.9% 20 ML ONE (11:00)
[2019-11-14] MEDS ORDERED: Fluorescein 5 ML Vial ONE (11:06)
[2019-11-14] MEDS ORDERED: Neostigmine Methylsulfate 1 MG/ML 5 ML Syringe ONE (11:18)
[2019-11-14] MEDS ORDERED: Glycopyrrolate 0.2 MG/ML SDV ONE (11:18)
[2019-11-14] MEDS ORDERED: Ketorolac 30 MG/ML SDV ONE (12:20)
[2019-11-14] MEDS ORDERED: Octyl 2-Cyanoacrylate 1 Tube ONE (12:23)
[2019-11-14] MEDS ORDERED: Acetaminophen/oxyCODONE 325-5 MG Tab PO PRN (12:44)
[2019-11-14] MEDS ORDERED: Morphine 4 MG/ML Syringe IVPUSH PRN (12:44)
[2019-11-14] MEDS ORDERED: Promethazine 25 MG/ML SDV IM PRN (12:44)
[2019-11-14] MEDS ORDERED: Ondansetron 4 MG/2 ML SDV IVPUSH PRN (12:44)
[2019-11-14] MEDS ORDERED: Acetaminophen 1,000 MG in Premix Bag 1 BAG IV ONE (12:54)
[2019-11-14] MEDS: fentaNYL 100 MCG/2 ML SDV IVPUSH PRN ×2 (13:01→13:15)
--- NOTE | 2019-11-14 13:29 | PCM.POSTAN ---
POST ANESTHESIA ASSESSMENT - MENTAL STATUS Mental Status: Alert, Oriented - VITAL SIGNS Vital Signs: Last Vital Signs Temp 336 C H 11/14/19 12:36 Pulse 88 11/14/19 13:26 Resp 11 L 11/14/19 13:26 BP 109/68 11/14/19 13:26 Pulse Ox 99 11/14/19 13:26 - RESPIRATORY Respiratory Status: Respiratory Rate WNL, Airway Patent, O2 Saturation Stable - CARDIOVASCULAR CV Status: Pulse Rate WNL, Blood Pressure Stable - GASTROINTESTINAL GI Status: No Symptoms - PAIN Pain Score: 2 - POST OP HYDRATION Hydration Status: Adequate & Stable - OBSERVATIONS Free Text/Narrative:: No anesthesia problems
[2019-11-14] MEDS ORDERED: EPINEPHrine 1:10,000 1 MG/10 ML Syringe IVPUSH PRN (13:44)
[2019-11-14] MEDS ORDERED: 50% Dextrose in Water 50 ML Syringe IVPUSH PRN (13:44)
[2019-11-14] MEDS ORDERED: Naloxone 0.4 MG/ML Syringe IVPUSH PRN (13:44)
[2019-11-14] MEDS ORDERED: fentaNYL 100 MCG/2 ML SDV IVPUSH PRN (13:44)
[2019-11-14] MEDS ORDERED: Atropine 0.1 MG/ML 10 ML Syringe IVPUSH PRN ×2 (13:44)
[2019-11-14] MEDS ORDERED: Albuterol 0.083% 2.5 MG/3 ML Neb Soln NEB PRN (13:44)
[2019-11-14] MEDS: Ketorolac 30 MG/ML SDV IVPUSH SCH (18:20)
[2019-11-14] MEDS: Acetaminophen/oxyCODONE 325-5 MG Tab PO PRN (20:58)
[2019-11-15] MEDS: Ketorolac 30 MG/ML SDV IVPUSH SCH ×2 (00:32→06:29)
--- NOTE | 2019-11-15 01:41 | OR ---
SURGEON: Galdino Dorado MD DATE OF PROCEDURE: 11/14/2019 INDICATION FOR PROCEDURE: A 44-year-old female with symptomatic rectocele and pelvic pain with history of endometriosis. Options for management of rectocele and pelvic pain were discussed including expectant management, pelvic floor exercises, or surgical management. She desired to have definitive management with hysterectomy and rectocele repair. Ultrasound performed in the office showed normal appearing uterus, ovaries and adnexa. She had benign endometrium on biopsy. PREOPERATIVE DIAGNOSES: 1. Symptomatic stage II rectocele. 2. Pelvic pain. 3. History of endometriosis. POSTOPERATIVE DIAGNOSES: 1. Symptomatic stage II rectocele. 2. Pelvic pain. 3. History of endometriosis. PROCEDURE PERFORMED: Laparoscopic assisted vaginal hysterectomy, bilateral salpingectomy, cystoscopy, posterior colporrhaphy with perineorrhaphy. ANESTHESIA: General anesthesia. ANESTHESIOLOGIST: Dr. Live Campos FINDINGS: Normal appearing uterus, bilateral fallopian tubes and ovaries. Few endometriosis implants was seen on the uterus and left fallopian tube, none were noted in the cul-de-sac or pelvic side wall. Normal appearing vagina and cervix with stage II rectocele. Cystoscopy showed normal bladder without injury, bilateral ureteral jets were seen. Estimated blood loss: 50 mL. DESCRIPTION OF THE PROCEDURE: Procedure was discussed with the patient in detail. Risks and complications including bleeding, infection, DVTs, injury to surrounding organs including bowel, ureter, and bladder were discussed with the patient. She expressed understanding. Questions answered and consent was signed. The patient was brought to the operating room. General anesthesia was applied. She was then placed in dorsal lithotomy position. The abdomen was prepped in usual sterile fashion with chlorhexidine and the vagina was prepped with betadine. A Gamino catheter was placed into the bladder. Bimanual exam was performed. The uterus was normal size, anteverted, and mobile. No adnexal masses were palpated. A speculum was placed to visualize the cervix. The anterior lip of the cervix was grasped with an Allis clamp. Uterine sound showed uterus to be 8 cm in depth. The cervix was then dilated with a Hegar dilator to 6 mm. The HUMI uterine manipulator was placed into the uterine cavity and the balloon inflated to keep it in place. Attention was then turned to the abdomen. 0.25% Marcaine was used to infiltrate at the umbilicus, a 5 mm incision was made. The Veress needle was used for entry. Intraperitoneal location was confirmed in the usual fashion with a saline drop test. CO2 gas was used to insufflate the abdomen with low opening pressure, and pneumoperitoneum of 15 mmHg was obtained. A 5 mm trocar was placed under visualization with the laparoscope. No vascular or visceral injury was noted at the entry site. Under visualization, a 5 mm port was placed in the right lower quadrant and additional 5 mm port was placed in the left lower quadrant. The patient was placed in Trendelenburg and blunt probe was used to sweep the bowel away from the pelvis. Examination of the abdomen noted a normal-sized uterus with bilateral normal-appearing fallopian tubes and ovaries. Few endometriosis implants was seen on the uterus and left fallopian tube, none were noted in the cul-de-sac or pelvic side wall. Bilateral ureters were seen along the pelvic wall. An atraumatic grasper was used to retract the fimbriated end of the left fallopian tube. LigaSure device was used to transect the fallopian tube along the mesosalpinx to the cornua. The round ligament was then cauterized and transected with the LigaSure. The broad ligament was then taken down towards the peritoneal reflection. The anterior leaf of the broad ligament was then bluntly to create the bladder flap. The bladder peritoneum was dissected away from the cervix bluntly and with LigaSure. The posterior peritoneum was also taken down. Attention was then turned to the right side, salpingectomy was performed in similar fashion, followed by the round ligament and broad ligament were taken down. The bladder flap was also created on that side, and bladder carefully from the cervix. Hemostasis was confirmed. The cardinal ligament was then ligated adjacent to the internal os of the cervix on both sides. Attention was then turned to the vaginal portion of the surgery. A weighted speculum was placed in the posterior vagina. The uterine manipulator was removed. Bryosn clamp were used to grasp the anterior lip of the cervix. A circumferential incision was made at the cervico-vaginal reflection using cautery. The vaginal mucosa was then bluntly pushed away from the cervix anteriorly and posteriorly. The peritoneal layer was grasped posteriorly with forceps, and Metzenbaum scissors were used to make the peritoneal incision. It was confirmed digitally that the opening was in the peritoneal cavity. A long gooseneck speculum was then placed in the posterior cul-de-sac. The anterior peritoneum was also grasped, and incision made with Metzenbaum scissors, then bluntly dissected until the peritoneal cavity was entered. Oma clamps were used to clamp the right uterosacral ligament, then suture ligated with 2-0 vicryl. The same was performed on the left side. The sutures were held with Kati clamps. The cardinal ligament was then clamped and ligated in similar fashion. 2 additional bites were applied along the uterus bilaterally to reach the dissection from previously and suture ligated in similar fashion. At this point, the specimen was freed from the pelvic attachments and removed. The pedicles were then carefully examined and all pedicles were hemostatic. The uterosacral stitch was then sutured to the lateral corner of the vaginal incision with a [id number] to provide support for the vaginal vault. The vaginal cuff was closed vertically in running fashion with a 0 Polysorb suture. Hemostasis was confirmed. Next, the posterior repair was performed. An allis clamp were used to grasp the apical edge of the rectocele and 2 additional Allis clamps were used to grasp 1 cm lateral to each side of the perineum. An inverted triangle area of skin was removed from the perineum with scalpel. 10 mL of saline was infiltrated under the vaginal mucosa in the midline and in the perineal body. The posterior vaginal mucosa was then incised in the midline with a scalpel. The edges were grasped with Allis clamps. The mucosa was carefully dissected laterally with Metzenbaum scissors and bluntly until the perirectal fascia was noted. The perirectal fascia was then brought together at the midline with interrupted mattress stitches with 2-0 vicryl. The rectocele was reduced appropriately. The excess vaginal mucosa was trimmed about 0.5cm on each side. The vaginal mucosa was then closed with a 2-0 Vicryl to the hymen in running locking fashion. The perineal muscles were brought together in the midline and the perineal skin was closed in a subcuticular fashion. A rectal exam was then performed and no sutures were noted in the rectum, the prolapse was noted to be sufficiently reduced. A cystoscopy was then performed. A 30 degree cystoscope was placed in the urethra and the bladder instilled with about 200 mL of saline. The bladder was normal appearing and did not have any injuries. Both ureters had efflux of ureteral jets that was visualized with fluorescein. The cystoscope was then removed. The vagina was packed with gauze for hemostasis. The abdomen was insufflated with CO2. The pelvis was carefully irrigated with the suction reports analyst, and the pedicles were again examined. Small areas of oozing were noted along the vaginal cuff and the LigaSure device was used to cauterize areas of bleeding. Hemostasis was confirmed. The instruments and ports were then completely removed. The incisions were closed with 3-0 Monocryl. Dermabond was placed over the laparoscopic incisions. All sponge and instrument counts were correct at the end of the procedure. The patient was awoken from anesthesia and brought to the recovery room in stable condition. GLENDY DELA CRUZ /[id number] MTDD
[2019-11-15 06:40] LABS: BLOOD UREA NITROGEN,BUN 9 mg/dL (7.0-18.0); CARBON DIOXIDE,CO2 26.9 mmol/L (21.0-32.0); CHLORIDE,CL 106 mmol/L (98-107); GLUCOSE RANDOM 120 mg/dL (74-106); POTASSIUM,K 3.8 mmol/L (3.5-5.1); SODIUM,NA 141 mmol/L (136-145)
[2019-11-15] MEDS: Acetaminophen/oxyCODONE 325-5 MG Tab PO PRN (07:53)
--- NOTE | 2019-11-15 08:13 | PCM48HPAN ---
Post Anesthesia Note - EVALUATION WITHIN 48HRS OF ANESTHETIC Vital Signs in Normal Range: Yes Patient Participated in Evaluation: Yes Respiratory Function Stable: Yes Airway Patent: Yes Cardiovascular Function Stable: Yes Hydration Status Stable: Yes Pain Control Satisfactory: Yes Nausea and Vomiting Control Satisfactory: Yes Mental Status Recovered: Yes Vital Signs: Last Vital Signs Temp 36.8 C 11/15/19 04:00 Pulse 73 11/15/19 04:00 Resp 19 11/15/19 04:00 BP 92/55 L 11/15/19 04:00 Pulse Ox 95 11/15/19 04:00
--- NOTE | 2019-11-15 08:44 | PCM.PN ---
- General Info Date of Service: 11/15/19 Functional Status: Reports: Pain Controlled, Tolerating Diet, Ambulating, Other (Gamino removed this AM, was able to void. ) - Review of Systems General: Reports: No Symptoms HEENT: Reports: No Symptoms Pulmonary: Reports: No Symptoms Cardiovascular: Reports: No Symptoms Gastrointestinal: Reports: No Symptoms Genitourinary: Reports: Pain Musculoskeletal: Reports: No Symptoms Skin: Reports: No Symptoms Neurological: Reports: No Symptoms Psychiatric: Reports: No Symptoms - Patient Data Vitals - Most Recent: Last Vital Signs Temp 36.8 C 11/15/19 04:00 Pulse 79 11/15/19 08:00 Resp 19 11/15/19 04:00 BP 100/59 L 11/15/19 08:00 Pulse Ox 95 11/15/19 04:00 Weight - Most Recent: 169 lb I&O - Last 24 Hours: Intake & Output 11/14/19 11/15/19 11/15/19 22:59 06:59 14:59 Intake Total 250 1280 Output Total 400 2110 Balance -150 -830 Lab Results Last 24 Hours: Laboratory Results - last 24 hr 11/14/19 11/14/19 11/14/19 Range/Units 08:18 08:18 08:18 WBC (4.0-11.0) K/uL RBC (4.30-5.90) M/uL Hgb (12.0-16.0) g/dL Hct (36.0-46.0) % MCV (80.0-98.0) fL MCH (27.0-32.0) pg MCHC (31.0-37.0) g/dL RDW Std Deviation (28.0-62.0) fl RDW Coeff of Estrella (11.0-15.0) % Plt Count (150-400) K/uL MPV (7.40-12.00) fL Neut % (Auto) (48.0-80.0) % Lymph % (Auto) (16.0-40.0) % [place] % (Auto) (0.0-15.0) % Eos % (Auto) (0.0-7.0) % Baso % (Auto) (0.0-1.5) % Neut # (Auto) (1.4-5.7) K/uL Lymph # (Auto) (0.6-2.4) K/uL [place] # (Auto) (0.0-0.8) K/uL Eos # (Auto) (0.0-0.7) K/uL Baso # (Auto) (0.0-0.1) K/uL Nucleated RBC % /100WBC Nucleated RBCs # K/uL Sodium 142 (136-145) mmol/L Potassium 4.3 (3.5-5.1) mmol/L Chloride 108 H (98-107) mmol/L Carbon Dioxide 24.9 (21.0-32.0) mmol/L BUN 16 (7.0-18.0) mg/dL Creatinine 0.9 (0.6-1.0) mg/dL Est Cr Clr Drug Dosing 71.03 mL/min Estimated GFR (MDRD) > 60.0 ml/min Glucose 115 H (74-106) mg/dL Calcium 8.7 (8.5-10.1) mg/dL Total Bilirubin (0.2-1.0) mg/dL AST (15-37) IU/L ALT (14-63) IU/L Alkaline Phosphatase (46-116) U/L Total Protein (6.4-8.2) g/dL Albumin (3.4-5.0) g/dL Globulin (2.6-4.0) g/dL Albumin/Globulin Ratio (0.9-1.6) HCG, Quant < 1.0 mIU/mL Blood Type AB POSITIVE Antibody Screen NEGATIVE 11/15/19 11/15/19 Range/Units 06:03 06:03 WBC 14.36 H (4.0-11.0) K/uL RBC 3.61 L (4.30-5.90) M/uL Hgb 11.8 L (12.0-16.0) g/dL Hct 35.8 L (36.0-46.0) % MCV 99.2 H (80.0-98.0) fL MCH 32.7 H (27.0-32.0) pg MCHC 33.0 (31.0-37.0) g/dL RDW Std Deviation 47.7 (28.0-62.0) fl RDW Coeff of Estrella 13 (11.0-15.0) % Plt Count 312 (150-400) K/uL MPV 11.30 (7.40-12.00) fL Neut % (Auto) 78.7 (48.0-80.0) % Lymph % (Auto) 12.5 L (16.0-40.0) % [place] % (Auto) 8.7 (0.0-15.0) % Eos % (Auto) 0.0 (0.0-7.0) % Baso % (Auto) 0.1 (0.0-1.5) % Neut # (Auto) 11.3 H (1.4-5.7) K/uL Lymph # (Auto) 1.8 (0.6-2.4) K/uL [place] # (Auto) 1.3 H (0.0-0.8) K/uL Eos # (Auto) 0.0 (0.0-0.7) K/uL Baso # (Auto) 0.0 (0.0-0.1) K/uL Nucleated RBC % 0.0 /100WBC Nucleated RBCs # 0 K/uL Sodium 141 (136-145) mmol/L Potassium 3.8 (3.5-5.1) mmol/L Chloride 106 (98-107) mmol/L Carbon Dioxide 26.9 (21.0-32.0) mmol/L BUN 9 (7.0-18.0) mg/dL Creatinine 0.8 (0.6-1.0) mg/dL Est Cr Clr Drug Dosing 79.91 mL/min Estimated GFR (MDRD) > 60.0 ml/min Glucose 120 H (74-106) mg/dL Calcium 8.2 L (8.5-10.1) mg/dL Total Bilirubin 0.3 (0.2-1.0) mg/dL AST 9 L (15-37) IU/L ALT 22 (14-63) IU/L Alkaline Phosphatase 56 (46-116) U/L Total Protein 5.9 L (6.4-8.2) g/dL Albumin 3.2 L (3.4-5.0) g/dL Globulin 2.7 (2.6-4.0) g/dL Albumin/Globulin Ratio 1.2 (0.9-1.6) HCG, Quant mIU/mL Blood Type Antibody Screen Med Orders - Current: Current Medications Morphine Sulfate (Morphine) 4 mg IVPUSH Q2H PRN PRN Reason: Pain (severe 7-10) Ondansetron HCl (Zofran) 4 mg IVPUSH Q6H PRN PRN Reason: Nausea/Vomiting Last Admin: 11/14/19 16:43 Dose: 4 mg Oxycodone/Acetaminophen (Percocet 325-5 Mg) 1 tab PO Q4H PRN PRN Reason: Pain (moderate 4-6) Last Admin: 11/15/19 07:53 Dose: 1 tab Oxycodone/Acetaminophen (Percocet 325-5 Mg) 2 tab PO Q4H PRN PRN Reason: Pain (moderate 4-6) Promethazine HCl (Phenergan) 25 mg IM Q6H PRN PRN Reason: Nausea/Vomiting Sodium Chloride (Saline Flush) 10 ml FLUSH ASDIRECTED PRN PRN Reason: Keep Vein Open Sodium Chloride (Saline Flush) 2.5 ml FLUSH ASDIRECTED PRN PRN Reason: Keep Vein Open Sodium Chloride (Normal Saline) 10 ml IV ASDIRECTED PRN PRN Reason: IV Use Discontinued Medications Albuterol (Proventil Neb Soln) 2.5 mg NEB ONETIME PRN PRN Reason: Wheezing Atropine Sulfate (Atropine 0.1 Mg/Ml) 0.5 mg IVPUSH ASDIRECTED PRN PRN Reason: Hypo-perfusion Stop: 11/14/19 13:45 Atropine Sulfate (Atropine 0.1 Mg/Ml) 1 mg IVPUSH ASDIRECTED PRN PRN Reason: Hypo-Perfusion Bupivacaine HCl (Sensorcaine-Mpf 0.25%) Confirm Administered Dose 20 ml .ROUTE .STK-MED ONE Stop: 11/14/19 08:09 Dexamethasone (Dexamethasone) Confirm Administered Dose 20 mg .ROUTE .STK-MED ONE Stop: 11/14/19 10:53 Dextrose/Water (Dextrose 50% In Water) 50 ml IVPUSH ASDIRECTED PRN PRN Reason: Hypoglycemia Ephedrine Sulfate (Ephedrine Sulfate) Confirm Administered Dose 50 mg .ROUTE .STK-MED ONE Stop: 11/14/19 10:06 Epinephrine HCl (Epinephrine 1:10,000) 1 mg IVPUSH ASDIRECTED PRN PRN Reason: ACLS Guidelines Fentanyl (Sublimaze) Confirm Administered Dose 250 mcg .ROUTE .STK-MED ONE Stop: 11/14/19 07:40 Fentanyl (Sublimaze) 50 - 100 mcg IVPUSH Q5M PRN PRN Reason: Pain (severe 7-10) Last Admin: 11/14/19 13:15 Dose: 50 mcg Fentanyl (Sublimaze) 50 mcg IVPUSH Q5M PRN PRN Reason: Pain Fluorescein Sodium (Ak-Fluor) Confirm Administered Dose 5 ml .ROUTE .STK-MED ONE Stop: 11/14/19 11:07 Glycopyrrolate (Robinul) Confirm Administered Dose 0.4 mg .ROUTE .STK-MED ONE Stop: 11/14/19 11:19 Cefazolin Sodium/Dextrose 2 gm (/ Premix) 50 mls @ 100 mls/hr IV ONETIME ONE Stop: 11/14/19 03:04 Last Admin: 11/14/19 17:42 Dose: Not Given Lactated Ringer's (Ringers, Lactated) 1,000 mls @ 100 mls/hr IV ASDIRECTED [facility] Last Admin: 11/14/19 22:38 Dose: 100 mls/hr Sodium Chloride (Normal Saline) Confirm Administered Dose 20 mls @ as directed .ROUTE .STK-MED ONE Stop: 11/14/19 11:01 Acetaminophen 1,000 mg/ Premix 100 mls @ 400 mls/hr IV NOW ONE Stop: 11/14/19 13:08 Last Admin: 11/14/19 13:08 Dose: 400 mls/hr Ketorolac Tromethamine (Toradol) Confirm Administered Dose 30 mg .ROUTE .STK- MED ONE Stop: 11/14/19 12:21 Ketorolac Tromethamine (Toradol) 30 mg IVPUSH Q6H [facility] Stop: 11/15/19 06:46 Last Admin: 11/15/19 06:29 Dose: 30 mg Methylene Blue (Provayblue) Confirm Administered Dose 50 mg .ROUTE .STK-MED ONE Stop: 11/14/19 08:01 Midazolam HCl (Versed 1 Mg/Ml) Confirm Administered Dose 2 mg .ROUTE .STK-MED ONE Stop: 11/14/19 07:40 Naloxone HCl (Narcan) 0.1 mg IVPUSH ASDIRECTED PRN PRN Reason: Respiratory Depression Neostigmine Methylsulfate (Neostigmine) Confirm Administered Dose 5 mg .ROUTE .STK-MED ONE Stop: 11/14/19 11:19 Octyl Cyanoacrylate (Dermabond Advance) Confirm Administered Dose 1 applic .ROUTE .STK-MED ONE Stop: 11/14/19 12:24 Ondansetron HCl (Zofran) Confirm Administered Dose 4 mg .ROUTE .STK-MED ONE Stop: 11/14/19 10:53 Phenylephrine HCl (Phenylephrine In Ns 100 Mcg/Ml) Confirm Administered Dose 1 mg .ROUTE .STK-MED ONE Stop: 11/14/19 10:06 Propofol (Diprivan 20 Ml) Confirm Administered Dose 200 mg .ROUTE .STK-MED ONE Stop: 11/14/19 07:40 Rocuronium [place] (Zemuron) Confirm Administered Dose 100 mg .ROUTE .STK-MED ONE Stop: 11/14/19 10:06 Scopolamine (Transderm-Scop) 1.5 mg TRDERM Q72H PRN PRN Reason: Nausea Last Admin: 11/14/19 09:15 Dose: 1.5 mg Succinylcholine Chloride (Succinylcholine Chloride) Confirm Administered Dose 200 mg .ROUTE .STK-MED ONE Stop: 11/14/19 10:06 - Exam General: Alert, Oriented, Cooperative HEENT: Pupils Equal, Pupils Reactive, EOMI Neck: Supple, Trachea Midline Lungs: Clear to Auscultation, Normal Respiratory Effort Cardiovascular: Regular Rate, Regular Rhythm, No Murmurs GI/Abdominal Exam: Soft, Non-Tender, No Organomegaly, No Distention (Female) Exam: Vaginal Bleeding (minimal) Back Exam: Normal Inspection, Full Range of Motion Extremities: Normal Inspection, Normal Range of Motion, Non-Tender, No Pedal Edema Skin: Warm, Dry, Intact Wound/Incisions: Healing Well Neurological: No New Focal Deficit Psy/Mental Status: Alert, Normal Affect, Normal Mood Sepsis Event Note - Evaluation Sepsis Screening Result: No Definite Risk - Focused Exam Vital Signs: Vital Signs Temp Pulse Resp BP Pulse Ox 11/15/19 08:00 79 100/59 L 11/15/19 04:00 36.8 C 73 19 92/55 L 95 11/14/19 23:00 36.8 C 110 H 16 105/63 96 11/14/19 21:15 90 14 122/72 96 Date Exam was Performed: 11/15/19 Time Exam was Performed: 08:39 - Problem List Review Problem List Initiated/Reviewed/Updated: Yes - My Orders Last 24 Hours: My Active Orders 11/14/19 12:44 Patient Status [ADT] Routine Notify Provider Intake and Out [RC] ASDIRECTED Notify Provider Vital Signs [RC] ASDIRECTED Oxygen Therapy [RC] ASDIRECTED RT Incentive Spirometry [RC] Q2HWA Up With Assistance [RC] PER UNIT ROUTINE Up ad [place] [RC] PER UNIT ROUTINE Vital Signs [RC] Q4H Acetaminophen/oxyCODONE [Percocet 325-5 MG] 1 tab PO Q4H PRN Acetaminophen/oxyCODONE [Percocet 325-5 MG] 2 tab PO Q4H PRN Morphine 4 mg IVPUSH Q2H PRN Ondansetron [Zofran] 4 mg IVPUSH Q6H PRN Promethazine [Phenergan] 25 mg IM Q6H PRN Peripheral IV Discontinue [OM.PC] Routine Sequential Compression Device [OM.PC] Per Unit Routine Resuscitation Status Routine 11/14/19 Dinner Regular Diet [DIET] 11/15/19 08:34 Ready for Discharge [RC] PER UNIT ROUTINE - Assessment Assessment:: 44yo POD1 s/p LAVH, bilateral salpingectomy, rectocele repair and perineorrhaphy , and cystocele. Stable and recovering well. - Plan Plan:: VSS Hgb 11 this AM, stable. Minimal vaginal bleeding. Denies s/s of anemia. Port site incisions healing well Stressed importance of regular BMs to help with healing, miralax daily. Norcos, tylenol and motrin for pain. Reviewed discharge instruction, follow up in 2 weeks.
== END 2019-11-15 09:50 | disposition home or self-care (01) ==
LOC: MW.SDS 07:40 → MW.MS 13:19 → MW.SDS 11-15 09:50
PROVIDERS: ATTEND Obstetrics & Gynecology
DX: N81.6 Rectocele (principal); Z87.42 Personal history of other diseases of the female genital tract; Z98.51 Tubal ligation status; Z87.891 Personal history of nicotine dependence; Z91.030 Bee allergy status
CPT/HCPCS: 36415; 57250; 58552; 80048; 80053; 84702; 85025; 85027; 86850; 86900; 86901; 88305; 88307; A9270; J0131; J0330; J1100; J1885; J2250; J2370; J2405; J2704; J3010; J3490; J7120

== ENCOUNTER 2022-11-23 20:48 | Emergency (ER) | payer SELFPAY ==
[2022-11-23] MEDS ORDERED: Nitrofurantoin Monohydrate/Macrocrystalline 100 MG Cap PO ONE (23:29)
[2022-11-23] MEDS ORDERED: Phenazopyridine 200 MG Tab PO ONE (23:29)
== END 2022-11-23 23:45 | disposition home or self-care (01) ==
LOC: MW.ED 20:48
DX: N39.0 Urinary tract infection, site not specified (principal); Z91.030 Bee allergy status
CPT/HCPCS: 81001; 87086; 99283; A9270